=== PATIENT | female | born 1945 | race African-American/Black ===

== ENCOUNTER → 2021-03-01 | Outpatient (CLI) | payer OTHER | LOC: SJCVC 13:07 | PROVIDERS: ATTEND Nuclear Medicine Nuclear Cardiology | DX: I12.9 Hypertensive chronic kidney disease with stage 1 through stage 4 chronic kidney disease, or unspecified chronic kidney disease (principal); N18.30 Chronic kidney disease, stage 3 unspecified; I73.9 Peripheral vascular disease, unspecified; E78.00 Pure hypercholesterolemia, unspecified; J44.9 Chronic obstructive pulmonary disease, unspecified; E78.5 Hyperlipidemia, unspecified; G47.30 Sleep apnea, unspecified; Z88.1 Allergy status to other antibiotic agents; Z88.8 Allergy status to other drugs, medicaments and biological substances; Z79.82 Long term (current) use of aspirin; Z79.899 Other long term (current) drug therapy; Z72.89 Other problems related to lifestyle; Z87.891 Personal history of nicotine dependence ==

== ENCOUNTER → 2021-03-10 | Outpatient (CLI) | payer OTHER ==
[~2021-03-10] VITALS: Ht 149.9 cm; Wt 91.6 kg
[~2021-03-10] MED LIST: ALLOPURINOL 10100 M1 PO; ASA81BEC PO; ATORVASTATIN CA20 MG PO; CHOLECAL DF 951 EACH PO; DITROPAN XL5 M1 PO; DOLOGEN CAPLET1 EACH PO; FLUTICASONE-SA1 EAC3 SPRAY; IPRAT-ALBUT 0.5-3 ML SPRAY; LOSARTAN-HCTZ1 EAC3 PO; NORVASC10 MG PO; OXYBUTYNIN 5 MG5 M1 PO; POTASSIUM ACETAT1 GM PO; PROAIR HFA8.5 GM INH; PROTONIX 20 MG20 M1 PO; TOPROL XL100 MG PO
[2021-03-10 07:36] VITALS: BP 146/61
[2021-03-10 08:08] LABS: HEMATOCRIT 40.3 % (37.0-47.0); HEMOGLOBIN 13.2 gm/dL (12.0-15.0); MCH 28.9 pg (26.0-34.0); MCHC 32.7 g/dL (28.0-37.0); MCV 88.3 fL (80.0-100.0); RBC 4.56 mil/uL (4.20-5.00); RDW 16.6 % (10.5-14.5); WBC 5.7 thou/uL (4.0-11.0)
[2021-03-10 08:24] LABS: CALCIUM 9.4 mg/dL (8.5-10.1); CREATININE 1.3 mg/dL (0.6-1.0); POTASSIUM 4.2 mmol/L (3.5-5.1)
--- NOTE | 2021-03-13 07:30 | EKG ---
[place] [address] [facility] [employer] [place] [address] ELECTROCARDIOGRAM REPORT Name: KATHI ALEGRE Maxi Room #: [facility]#: [id number] Admission: 03/10/21 Attend Phys: Sebastián Dumont MD Discharge: Date of : 45 Report #: [id number] [facility] Test Date: 2021-03-10 Test Time: 08:28:17 Pat Name: KATHI ALEGRE Department: Room: Gender: F [employer] Architect: FSCHWALBE : 1945 Requested By: Sebastián Dumont Order Number: [id number] : Sandoval Haynes Measurements Intervals [place] Rate: 61 P: 71 MA: 197 QRS: -16 QRSD: 85 T: 35 QT: 430 QTc: 433 Interpretive Statements Sinus rhythm Probable left atrial enlargement Probable left ventricular hypertrophy No previous ECG available for comparison Electronically Signed On 03-13-2021 7:30:27 [employer] AGENT by Sandoval Haynes [email or web address] <ELECTRONICALLY SIGNED> By: Sandoval Haynes MD, [facility] 03/13/21 0730 0828 0828 Sandoval Haynes MD, FACC /EPI
== END | disposition home or self-care (01) ==
LOC: CATH 06:36
PROVIDERS: ATTEND Nuclear Medicine Nuclear Cardiology
DX: I73.89 Other specified peripheral vascular diseases (principal); I70.1 Atherosclerosis of renal artery; I70.90 Unspecified atherosclerosis; I12.9 Hypertensive chronic kidney disease with stage 1 through stage 4 chronic kidney disease, or unspecified chronic kidney disease; N18.30 Chronic kidney disease, stage 3 unspecified; I25.10 Atherosclerotic heart disease of native coronary artery without angina pectoris; M79.604 Pain in right leg; M79.605 Pain in left leg; J44.9 Chronic obstructive pulmonary disease, unspecified; M10.9 Gout, unspecified; Z98.890 Other specified postprocedural states; Z79.899 Other long term (current) drug therapy; Z87.891 Personal history of nicotine dependence